=== PATIENT | male | born 1940 | race Caucasian/White ===

== ENCOUNTER 2017-04-14 12:26 | Emergency (ER) | payer MEDICARE, OTHER ==
[~2017-04-14] VITALS: Ht 170.2 cm; Wt 83.0 kg
[~2017-04-14 12:26] MED LIST: AMLO5TAB22 PO; HYDR-2768 PO; METF500 PO; MOBI7.5T PO; NIZA150C2 PO; OMEP20TA39 PO; QUIN40TA10 PO; TYLE3 PO; ZOCO40TA PO
[2017-04-14 12:42] VITALS: BP 167/71; PULSE 77; RESP 18; TEMP 98.1; O2SAT 97
[2017-04-14] MEDS ORDERED: CLON0.1T PO (13:04)
[2017-04-14] MEDS ORDERED: SIMV10TA PO (13:04)
[2017-04-14] MEDS ORDERED: GABA300C5 PO (13:04)
[2017-04-14] MEDS ORDERED: OMEP20TA93 PO (13:04)
[2017-04-14] MEDS ORDERED: HYDR25TA5 PO (13:04)
[2017-04-14] MEDS ORDERED: LOSA100T PO (13:04)
--- NOTE | 2017-04-14 13:47 | RADRPT ---
EXAM DATE/TIME: 04/14/2017 13:24 [facility] COMPARISON: No previous studies available for comparison. INDICATIONS : Fall, left side rib pain. MEDICAL HISTORY : Hypertension. SURGICAL HISTORY : None. ENCOUNTER: Initial ACUITY: 2 days PAIN SCORE: 10/10 LOCATION: Left ribs FINDINGS: There are fractures of the left 12th, 11th and ninth and eighth ribs. There is no pneumothorax. Rig ht lung is clear. The heart and pulmonary vascularity are normal. CONCLUSION: Left rib fractures as described above. Esvin Brambila MD FACR on April 14, 2017 at 13:44 Board Certified Radiologist. This report was verified electronically.
--- NOTE | 2017-04-14 14:10 | PD ---
HPI Chief Complaint: Musculoskeletal Complaint Time Seen by Provider: 13:02 Travel History International Travel<30 days: No Contact w/Intl Traveler<30days: No Traveled to known affect area: No History of Present Illness HPI This is a 77-year-old male who presents with left rib pain 2 days. He reports he had a mechanical trip and fall. He reports he fell from a standing position onto his left side impacting a reclining chair. He did not fall to the ground. No head injury or loss of consciousness. Patient is not anticoagulated. He reports he had immediate pain in his left rib. The pain has persisted prompting his visit to the ER today. He reports pain with deep inspiration and palpation of the ribs. Alleviated by rest. PFSH Past Medical History High Cholesterol: Yes Diminished Hearing: No Hypertension: Yes Tetanus Vaccination: > 5 Years Influenza Vaccination: Yes Past Surgical History Appendectomy: Yes Other Surgery: Yes (right foot) Social History Alcohol Use: Yes (daily ) Tobacco Use: No Substance Use: No Allergies-Medications (Allergen,Severity, Reaction): Coded Allergies: No Known Allergies (Unverified Adverse Reaction, Unknown, 04/14/17) Reported Meds & Prescriptions Reported Meds & Active Scripts Active Reported Simvastatin 10 Mg Tab 10 Mg PO DAILY Gabapentin 300 Mg Cap 300 Mg PO TID Omeprazole 20 Mg Tab 20 Mg PO DAILY Hydrochlorothiazide 25 Mg Tab 25 Mg PO DAILY Losartan (Losartan Potassium) 100 Mg Tab 100 Mg PO DAILY Clonidine (Clonidine HCl) 0.1 Mg Tab 0.1 Mg PO BID Review of Systems Except as stated in HPI: all other systems reviewed are Neg General / Constitutional: No: Fever Eyes: No: Visual changes HENT: No: Headaches Cardiovascular: Positive: Other (left-sided rib pain) Respiratory: No: Shortness of Breath Gastrointestinal: No: Abdominal Pain Genitourinary: No: Dysuria Musculoskeletal: No: Pain Skin: No Rash Neurologic: No: Weakness Physical Exam Narrative GENERAL: Alert and well-appearing 77-year-old male. SKIN: Warm and dry. HEAD: Atraumatic. Normocephalic. EYES: Pupils equal and round. EOMs intact. ENT: No nasal bleeding or discharge. Mucous membranes pink and moist. NECK: Trachea midline. No JVD. No cervical midline tenderness. CARDIOVASCULAR: Regular rate and rhythm. Chest wall: Acutely tender anterior/ lateral left lower ribs. No crepitus. RESPIRATORY: No accessory muscle use. Clear to auscultation. Breath sounds equal bilaterally. Equal chest rise GASTROINTESTINAL: Abdomen soft, non-tender, obese abdomen. MUSCULOSKELETAL: Extremities without clubbing, cyanosis, or edema. No obvious deformities. NEUROLOGICAL: Awake and alert. No obvious cranial nerve deficits. Motor grossly within normal limits. Five out of 5 muscle strength in the arms and legs. Normal speech. PSYCHIATRIC: Appropriate mood and affect; insight and judgment normal. Data Data Last Documented VS Vital Signs Date Time Temp Pulse Resp B/P (MAP) Pulse Ox O2 Delivery O2 Flow Rate FiO2 04/14/17 12:42 98.1 77 18 167/71 (103) 97 Orders Orders Ribs, Uni (W/Exp Cxr-Min 3vw) (04/14/17 ) Resp Incentive Spirometry (04/14/17 ) Basic Metabolic Panel (Bmp) (04/14/17 14:10) Complete Blood Count With Diff (04/14/17 14:10) Ct Thorax/ Chest W Iv Contrast (04/14/17 14:10) Iohexol 350 Inj (Omnipaque 350 Inj) (04/14/17 15:14) Sodium Chlor 0.9% 1000 Ml Inj (Ns 1000 M (04/14/17 15:25) Labs Laboratory Tests Test 04/14/17 14:20 White Blood Count 7.6 TH/MM3 Red Blood Count 3.82 MIL/MM3 Hemoglobin 11.6 GM/DL Hematocrit 35.1 % Mean Corpuscular Volume 92.0 FL Mean Corpuscular Hemoglobin 30.3 PG Mean Corpuscular Hemoglobin Concent 32.9 % Red Cell Distribution Width 15.7 % Platelet Count 195 TH/MM3 Mean Platelet Volume 8.9 FL Neutrophils (%) (Auto) 64.7 % Lymphocytes (%) (Auto) 21.2 % Monocytes (%) (Auto) 12.1 % Eosinophils (%) (Auto) 1.5 % Basophils (%) (Auto) 0.5 % Neutrophils # (Auto) 5.0 TH/MM3 Lymphocytes # (Auto) 1.6 TH/MM3 Monocytes # (Auto) 0.9 TH/MM3 Eosinophils # (Auto) 0.1 TH/MM3 Basophils # (Auto) 0.0 TH/MM3 CBC Comment DIFF FINAL Differential Comment Blood Urea Nitrogen 15 MG/DL Creatinine 1.40 MG/DL Random Glucose 155 MG/DL Calcium Level 9.0 MG/DL Sodium Level 133 MEQ/L Potassium Level 4.8 MEQ/L Chloride Level 98 MEQ/L Carbon Dioxide Level 28.3 MEQ/L Anion Gap 7 MEQ/L Estimat Glomerular Filtration Rate 49 ML/MIN MDM Medical Decision Making Medical Screen Exam Complete: Yes Emergency Medical Condition: Yes Interpretation(s) CBC: Mild Anemia hemoglobin 11.4 BMP: Sodium 133. Creatinine 1.4, patient given IV fluids in the ED. Differential Diagnosis Rib fractures, pneumothorax, hemothorax, chest wall contusion Narrative Course This is a 77-year-old male here with left rib pain after he fell from a standing position onto a chair 2 days ago. He has acute tenderness to the left anterior/lateral lower ribs. No shortness of breath. Abdomen Nontender. No other obvious injuries. X-ray shows [address] scan of the chest obtained which shows no further traumatic injuries. All findings discussed with patient and family. He was instructed to follow-up with his primary doctor of his mild anemia and mildly elevated kidney function. He was offered pain medication for which he declined. He prefers to take [id number] Tylenol. Respiratory therapy instruct the patient how to properly use incentives spirometer. He is to follow-up his primary doctor for recheck on Monday. Return precautions were discussed. Patient verbalizes understanding and agrees to plan Diagnosis Primary Impression: Ribs, multiple fractures Qualified Codes: S22.42XA - Multiple fractures of ribs, left side, initial encounter for closed fracture Referrals: Primary Care Physician Additional Instructions: [id number] Tylenol as needed for pain. Incentive spirometer as directed. Follow-up with her primary doctor for recheck. Return to emergency department immediately if he developed severe increasing pain, shortness of breath, abdominal pain Disposition: 01 DISCHARGE HOME Condition: Stable Nelsy Ramsey Apr 14, 2017 14:10
[2017-04-14 14:38] LABS: BASOPHIL % 0.5 % (0.0-2.0); EOSINOPHIL # 0.1 TH/MM3 (0-0.4); EOSINOPHIL % 1.5 % (0.0-4.0); HEMATOCRIT 35.1 % (39.0-51.0); HEMOGLOBIN 11.6 GM/DL (13.0-17.0); LYMPH % 21.2 % (9.0-44.0); LYMPHOCYTE # 1.6 TH/MM3 (1.0-4.8); MEAN CORPUSCULAR HEMOGLOBIN 30.3 PG (27.0-34.0); MEAN CORPUSCULAR HGB CONC 32.9 % (32.0-36.0); MEAN PLATELET VOLUME 8.9 FL (7.0-11.0); MONO % 12.1 % (0.0-8.0); MONOCYTE # 0.9 TH/MM3 (0-0.9); NEUT % 64.7 % (16.0-70.0); PLATELET COUNT 195 TH/MM3 (150-450); RED BLOOD COUNT 3.82 MIL/MM3 (4.50-5.90); RED CELL DISTRIBUTION WIDTH 15.7 % (11.6-17.2); WHITE BLOOD COUNT 7.6 TH/MM3 (4.0-11.0)
[2017-04-14 14:44] LABS: BICARBONATE 28.3 MEQ/L (21.0-32.0)
[2017-04-14 14:48] LABS: CREATININE 1.4 MG/DL (0.60-1.30)
[2017-04-14] MEDS ORDERED: IOHEXOL 350 MG/ML 10 ML VIAL (for RAD DIAG) IVCONTRAST ONE (15:14)
[2017-04-14] MEDS ORDERED: SODIUM CHLOR 0.9% 1000 ML INJ 1,000 ML IV SCH (15:25)
--- NOTE | 2017-04-14 15:28 | RADRPT ---
EXAM DATE/TIME: 04/14/2017 15:09 [facility] COMPARISON: No previous studies available for comparison. INDICATIONS : Trauma. Fell 2 days ago. Left chest pain. IV CONTRAST: 60 cc Omnipaque 350 (iohexol) IV RADIATION DOSE: 13.79 CTDIvol (mGy) MEDICAL HISTORY : Hypertension. SURGICAL HISTORY : Appendectomy. ENCOUNTER: Initial ACUITY: 2 days PAIN SCALE: 10/10 LOCATION: Left chest TECHNIQUE: Volumetric scanning of the chest was performed. Using automated exposure control and adjustment of t he mA and/or kV according to patient size, radiation dose was kept as low as reasonably achievable to obtain optimal diagnostic quality images. DICOM format image data is available electronically for review and comparison. Follow-up recommendations for detected pulmonary nodules are based at a minimum on nodule size and pa tient risk factors according to Fleischner Society Guidelines. FINDINGS: LUNGS: Emphysematous changes within the apices. No pneumothorax. No mass, infiltrate, or bronchiectasis. PLEURA: There is no pleural thickening or pleural effusion. MEDIASTINUM: The heart and great vessels demonstrate no acute abnormality. There is no mediastinal or hilar lymph adenopathy. A solitary calcified lymph node within the right hilum. No adenopathy. AXILLAE: Within normal limits. No lymphadenopathy. SKELETAL: Within normal limits for patient age. MISCELLANEOUS: The visualized upper abdominal organs demonstrate no acute abnormality. The liver is diffusely low in attenuation. Granulomatous calcification seen involving the spleen. CONCLUSION: 1. No acute abnormality. 2. Emphysematous changes. 3. Hepatic steatosis. Roderick Oviedo Jr., MD on April 14, 2017 at 15:20 Board Certified Radiologist. This report was verified electronically.
== END 2017-04-14 16:28 | disposition home or self-care (01) ==
LOC: PHEFT 12:26
DX: S22.42XA Multiple fractures of ribs, left side, initial encounter for closed fracture (principal); I10 Essential (primary) hypertension; E78.00 Pure hypercholesterolemia, unspecified; K76.0 Fatty (change of) liver, not elsewhere classified; W01.190A Fall on same level from slipping, tripping and stumbling with subsequent striking against furniture, initial encounter; Z79.899 Other long term (current) drug therapy
CPT/HCPCS: 71101; 71260; 80048; 85025; 94150; 99285; Q9967